=== PATIENT | female | born 1985 | race Caucasian/White ===

== ENCOUNTER 2024-08-22 20:32 | Emergency (ER) | payer BC, SELFPAY ==
[2024-08-22 20:36] VITALS: BP 163/94; PULSE 123; RESP 16; O2SAT 98
[2024-08-22 20:43] VITALS: BP 162/93; PULSE 126; RESP 22; TEMP 37.3; O2SAT 99
--- NOTE | 2024-08-22 21:08 | W.ED.GENAD ---
Discharge Plan Discharge Details Chief Complaint: PsychEval Clinical Impression: Arabella Primary Care Provider: Unknown,Unknown ED Provider: Adrianna Overton Home Meds and New Rx's Prescriptions: No Action quetiapine [Seroquel] .ROUTE HPI General Mode of arrival: ambulatory. Date/Time Provider Initiated Documentation: 08/22/24 20:45. Limitations to Documentation: no limitations. Information obtained by: patient. HPI Narrative: 39yo F with hx bipolar, unknown what medications she typically takes, presenting via EMS for concern for maniac episode. Minimally history obtained from patient who is quiet tangential. She denies SI/HI/AH/VH or physical complaints. Father subsequently to bedside and reports that for 2-3 days she has been agitated, not sleeping, not making sense, slamming doors. Has been walking around naked including outside in the snow (of note, temp ~10 degrees F today). Has had similar episodes in the past requiring hospitalization. Related Data Home Medications ?Medication ?Instructions ?Recorded ?Confirmed quetiapine .ROUTE 08/22/24 Allergies Allergy/AdvReac Type Severity Reaction Status Date / Time lithium Allergy Unknown Unknown Verified 08/22/24 20:47 General Stated Complaint: PsychEval JESUS: 2 Review of Systems Narrative: see HPI Exam Narrative Exam Narrative: General: Alert, well appearing, well nourished, in no acute distress. Head: Normocephalic, atraumatic Neck: Trachea midline, ?Neck supple. Cardiac: ?RRR, no murmurs appreciated Resp: No respiratory distress. CTAB. Abd: ?Soft, non-distended, nontender : ?No suprapubic tenderness. Extremities: ?No deformities.? No peripheral edema. Neurologic: GCS 15. ? Moves all extremities freely against gravity Psych: Mildly agitated, verbally redirectable. Well groomed.? Mood great!, affect congruent.? Speech slightly rapid and high pitches with normal volume and rythym. Frequently giggling. Tangential. Denies SI/HI/AH/VH. ? Does not appear to be responding to internal stimuli. Course Vital Signs Vital signs: Vital Signs Pulse 123 H 08/22/24 20:36 Respiratory Rate 16 08/22/24 20:36 Blood Pressure 163/94 H 08/22/24 20:36 Pulse Oximetry 98 08/22/24 20:36 Temperature 37.3 C 08/22/24 20:43 Temperature Source Oral 08/22/24 20:43 Pulse 126 H 08/22/24 20:43 Respiratory Rate 22 08/22/24 20:43 Blood Pressure 162/93 H 08/22/24 20:43 Pulse Oximetry 99 08/22/24 20:43 Oxygen Delivery Method Room Air 08/22/24 20:43 Oxygen Flow Rate 0 08/22/24 20:43 Pain Level 0 08/22/24 20:36 Medical Decision Making 39yo F with hx bipolar, unknown what medications she typically takes, presenting via EMS for concern for maniac episode. Minimally history obtained from patient who is quiet tangential. She denies SI/HI/AH/VH or physical complaints. Father subsequently to bedside and reports that for 2-3 days she has been agitated, not sleeping, not making sense, slamming doors. Has been walking around naked including outside in the snow (of note, temp ~10 degrees F today). Has had similar episodes in the past requiring hospitalization. Tachycardiac and hypertensive on arrival. HR improved to 100 without intervention. Suspect 2/t agitation. On exam she is agitated but redirectable, quite tangential. No SI/HI/AH/VH. Appears maniac, not psychotic. Medically cleared with SMART tool. Unknown home meds; father will attempt to identify and clarify. Evaluated by NK who agree patient warrants inpatient placement. Will be signed out to oncoming physician, plan as above. Patient is voluntary at this time but would meet involuntary criteria should she wish to leave. Quality:SDOH Health Related Social Needs: No Data to Display [facility] All Active Problems (Updated 08/22/24 @ 22:54 by Adrianna Overton MD) Arabella (Acute) Medical History (Updated 08/22/24 @ 22:54 by Adrianna Overton MD) Bipolar 1 disorder Surgical History (Updated 08/22/24 @ 21:27 by Bulmaro Brar RN) Neck discomfort Humeral surgical neck fracture Social History Smoking/Tobacco Use Status: Never Smoking risk assessment performed?: Yes Alcohol Intake: never
[2024-08-22 21:57] VITALS: PULSE 100; RESP 20; O2SAT 99
--- NOTE | 2024-08-22 23:20 | PDOC.MHCN ---
Date of service: 08/22/24 Time of Service: 22:46 Mental Health Emergency Note Release [facility] release signed:: No Reason for Visit In the last 2 weeks has the pt presented for ES prior to today?: Unknown Client Information Client is: New Well Housed: Yes Non Suicidal Self Injury Current: No History: No Safety Risk/Harm to Self or Others Current Ideation to Harm Self or Others: No Risk: Does risk to harm exist?: No Risk: N/A Duty to warn indicated: No Asssessment/Mental Status Appearance: Disheveled Behavior: Poor impulse control, Gait disturbances and Repetitive movements Speech: Normal Affect: Expansive Mood: Elevated, Expansive and Sad Thought process: Racing, Circumstational and Poverty of content Hallucinations: No evidence Delusions: No evidence Attention: Wandering and Inattention Perception: Derealization Orientation: Fully orientated Insight: Poor Judgement: Poor Neurovegetative Symptoms Sleep: Decrease Appetitie: No change Interests: No change Energy: No change Libido: Not applicable Substance Use: Do you use nicotine?: No Have you used substances in the last 7 days?: No Additional Issues: Assaultive/Threatening Behavior: Yes Medical Concerns: No Client engaged in active self harm w/weapon: No Threatening to run away: No Child reported abuse/neglect: No Voluntarily presenting for services: Yes Domestic violence is a concern: No Extreme Psychosis or extreme behavior is present: Yes Impression La Nena presents to this credit underwriter in paper scrubs, in her hospital room. La Nena reports she is upset that the staff at [facility] gave her mismatched socks, all socks were the same size. La Nena spoke about this for several minutes after this credit underwriter asked her why she was at the hospital. La Nena could not identify why she was at the hospital and reports that she is ?living in a twilight zone?. La Nena is easily distracted by other things on the tablet, like the password sticker, and the home button. La Nena reports she cannot sit on the bed, looks at this credit underwriter and goes ?you know why? and then sat on the bed a few minutes later. After every statement, La Nena would state, ?you know why though?. La Nena reports it is 2024 so it is okay to be manic. La Nena also reports that she had a panic attack earlier due to Platt dying. La Nena identified Platt as her cat and then stated ?You know he did not recently? When this credit underwriter asked when he La Nena stated, ?when we were kids, you know that? then paused and stated ? why are you even talking about Lc? Both this credit underwriter and her father tried to remind her she just brought up Lc but she did not seem to remember. La Nena reports that she is at a hospital that is very wordy and likes to use words. La Nena is oriented x3. La Nena denies every struggle with mental health, although dad reports she has a long history of mental health issues. This credit underwriter reported to La Nena she appeared to be in a mental health crisis and La Nena stated ?no I am all set?. La Nena reports she does not want to go to inpatient treatment, but at this time La Nena is not safe to return to the community. La Nena?s behaviors continue to be unpredictable and dangerous evident in her two mobile crisis responses today. La Nena is not able to engage in a normal conversation or be present in reality of 2024. La Nena presents as a client in significant need for mental health treatment. Aurea received a call from La Nena?s brother stating that they could not get in contact with Faizan, the father, after they got report that La Nena had taken knives out and had began throwing objects. Aurea and police responded to the home in person to find La Nena, extremely escalated with knives out. La Nena was in the middle of a mental health crisis and was not able to be de-escalated so she was transported via ambulance to the hospital for her safety as well as others. La Nena?s unpredictable behaviors, poor impulse control, and inability to be present in reality leaves her at risk to herself and the community. Plan/Disposition Recommended Disposition: Hospitalization (client is on EE, once all paperwork is compiled referrals will be sent) No. Plan: Client is on EE, QMHP portion completed and sent to [facility] awaiting physician piece and request for 2nd cert as well as medcial to complete referrals Person reported agreement to plan: Yes Reports/communication Outcome discussed with: ED/Personnel
[2024-08-23] MEDS: OLANZapine 10 MG VIAL 5 MG IM (03:00)
--- NOTE | 2024-08-23 03:02 | NUR.NOTE ---
[facility] called and refused pt Nursing Note:
[2024-08-23] MEDS: Water,Injection,Sterile 10 ML VIAL (04:10)
[2024-08-23 07:22] VITALS: BP 128/86; PULSE 120; RESP 20; TEMP 37.2; O2SAT 100
--- NOTE | 2024-08-23 08:07 | W.EDPROG ---
Date of service: 08/23/24 Time of Service: 08:08 Medical Decision Making Care assumed from outgoing provider. Patient is currently pending voluntary inpatient psychiatric placement. She is a 39-year-old female with history of bipolar disorder questionable medication compliance there is currently in the area visiting family. She has been displaying erratic and manic behavior, delusions and disorganized thinking at home and her family brought her here for evaluation. While in the emergency department, the patient has had significant behavioral issues. This morning on my arrival the patient left her room and went into another patient's room which created significant discord. At this time a seclusion order has been placed for the safety of the patient and the other patients in the area. Patient voluntarily took IM medication, but will not take oral medication and has not slept since being in the department. Will continue close monitoring. 1500 patients behavior has been steady throughout the day Quality:SDOH Health Related Social Needs: No Data to Display Discharge Plan Discharge Details Chief Complaint: PsychEval Clinical Impression: Arabella Primary Care Provider: Unknown,Unknown ED Provider: Julio Castañeda Home Meds and New Rx's Prescriptions: No Action quetiapine [Seroquel] .ROUTE Restraint Face to Face Time of Face to Face Face to Face: Time of Face to Face: 07:45 Patient's Immediate Situation Requiring Restraints/Seclusion: Harm to Staff & Others (Coming out of her room and going into other patient's rooms) Patient Response to Restraints: Tolerating with minimum Problems Patient's Medical & Behavioral Condition: Patient is manic, she has been placed in seclusion in her room for the safety of the other patients in the area
--- NOTE | 2024-08-23 12:56 | PDOC.MHPN2 ---
Date of service: 08/23/24 Time of Service: 12:59 Mental Health Emergency Note Release [facility] release signed:: Yes Reason for Visit The client is new to [facility]. History of hospitalizations are unknown at this time. The client is from [place] however, was in [place] visiting with her father and is experiencing Manic behaviors as she suffers from bi-polar episodes. She presented as very energetic, pacing, rearranging things over and over, and is having trouble speaking due to her cognition working so fast and unable at times to formulate words. This assessment is completed face to face at bedside. In the last 2 weeks has the pt presented for ES prior to today?: Unknown Impression The client is a 39 year old, single, female who resides in [place] and is in [place] visiting her father. It is also not known if she is employed or what her living arrangements are. The client is unable to engage in screening tools due to that manic and psychotic episode she appears to be in. Her thought process is tangential and she repeats questions. Examples of this are she stated she is in [place] visiting her father but that's impossible because he 4 seconds ago. Do you know Dr. Beyer? He lives in a blue box but he can't drive it. When asked about eating she said she was not ungry but I have 4 hearts and I'm from [facility]. When asked about SI and HI she responded with No! Do I look like I own a kingdom? The client then became emotional while asking why people during COVID? When asked who she responded that her sister did. She then went on to say she was hot and asked if this clinician was hot and then asked you can't smell that? It's methane gas. The client is observed on camera prior to the assessment pacing back and forth in her room from the wall to the door. She is seen turning the light on, walking to the door, walking back to the wall and turning the light off again. The nurse reported she has done this for about 30 mins non-stop. The client's speech is rapid and she sruggles to hold any reality based conversations. Plan/Disposition Recommended Disposition: Hospitalization facilities contacted. Plan: The client will remain at [facility] pending acceptance. Care Management is working on her medical insurance. The client will be assessed daily until placed. Person reported agreement to plan: Yes Reports/communication Outcome discussed with: ED/Personnel
--- NOTE | 2024-08-23 15:41 | CMPROGNOTE_ITS ---
Date of service: 08/23/24 Time of Service: 15:42 Care Management Progress Note Progress Note Text Progress Note Text: La Nena was admitted on 08/23/24 seeking voluntary psychiatric stabilization. She has a history of bipolar disorder and has been taking medication (Seroquel and Buproprion) for years, according to her father. She is from [place] and came to visit her father in [place]. La Nena was not sure if she had insurance. Her Dad informed CM that he believes she has [place] Medicaid and was able to locate her card and provided CM with the number. CM contacted [employer] to see if there was any reciprocity between the 2 states but apparently there is not. Since La Nena plans to return to [place] where she lives with her mother, she would not be eligible for [place] medicaid. According to La Nena's father, she has 2 older sisters who live in [place] and a brother Eduar in [place]. She and Eduar are reportedly very close. 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 Social Determinants of Health Screening Will the Patient Participate in the Screening?: Unable to obtain
--- NOTE | 2024-08-23 16:01 | CMSP_ITS ---
Date of service: 08/23/24 Time of Service: 16:01 Care Management Safety Plan Status Status: Voluntary Reason for Wait Reason for Wait: Inpatient Admission Safety Plan Safety Plan: VOLUNTARY FOR INPATIENT PSYCHIATRIC STABILIZATION.? Patient is appropriate in all interactions since arriving at [facility]; Pt has demonstrated appropriate coping and communication skills, has articulated her needs and concerns and is fully engaged during staff interactions. Safety plan has been established with patient, and care team, to adhere to patient goals, identify restrictions based on behavioral status, address nutrition, and determine allowed personal belongings, tools for hygiene and personal care. Determine level of activity including ambulation, level of supervision, visitors, and determine privileges based on behaviors and level of engagement by pt. VOLUNTARY SAFETY PLAN: 1. Will remain on suicide precautions, in paper clothes 2. Will remain in Zone B under direct supervision of one-on-one staff at all times provided by [employer]; JOSIAH, CATHEAD OPERATOR photographic enlarger operator. 3. May have paper cups, plates, finger foods as well as a cardboard spoon with which to eat meals. 4. Follow [facility] Management of the Admitted Behavioral Health Patient policy. 5. Shower available in Zone B without restriction. 6. Personal belongings-soft items permitted at RN discretion. 7. Visitors-none at this time. 8. Activities: soft cart items approved per RN discretion. 9.? Bathroom available in Zone B without restriction. 10. Phone: limited to [facility] cordless phone at RN discretion. Due to VOLUNTARY status, if patient wishes to leave [facility], staff will contact [facility] Crisis Screener ([phone]) and Correspondence Specialist ([phone]) as soon as possible. In the event of elopement, notify [facility] Police ([phone]). Patient is currently voluntarily at [facility] and seeking inpatient admission when a bed becomes available. [facility] Frontline Behavioral Health Specialist will continue seeking place ent. Please contact the Correspondence Specialist ([phone]) and [facility] Behavioral Health Specialist ([phone]) for any needed changes in the Safety Plan. Safety plan has been provided to interdepartmental care team.
--- NOTE | 2024-08-23 16:01 | PDOC.CMSAFE ---
Date of service: 08/23/24 Time of Service: 16:01 Care Management Safety Plan Status Status: Voluntary Reason for Wait Reason for Wait: Inpatient Admission Safety Plan Safety Plan: VOLUNTARY FOR INPATIENT PSYCHIATRIC STABILIZATION.? Patient is appropriate in all interactions since arriving at [facility]; Pt has demonstrated appropriate coping and communication skills, has articulated her needs and concerns and is fully engaged during staff interactions. Safety plan has been established with patient, and care team, to adhere to patient goals, identify restrictions based on behavioral status, address nutrition, and determine allowed personal belongings, tools for hygiene and personal care. Determine level of activity including ambulation, level of supervision, visitors, and determine privileges based on behaviors and level of engagement by pt. VOLUNTARY SAFETY PLAN: 1. Will remain on suicide precautions, in paper clothes 2. Will remain in Zone B under direct supervision of one-on-one staff at all times provided by [employer]; JOSIAH, WEB PRODUCTION DESIGNER network operations analyst. 3. May have paper cups, plates, finger foods as well as a cardboard spoon with which to eat meals. 4. Follow [facility] Management of the Admitted Behavioral Health Patient policy. 5. Shower available in Zone B without restriction. 6. Personal belongings-soft items permitted at RN discretion. 7. Visitors-none at this time. 8. Activities: soft cart items approved per RN discretion. 9.? Bathroom available in Zone B without restriction. 10. Phone: limited to [facility] cordless phone at RN discretion. Due to VOLUNTARY status, if patient wishes to leave [facility], staff will contact [facility] Crisis Screener ([phone]) and Senior Analyst Developer ([phone]) as soon as possible. In the event of elopement, notify [facility] Police ([phone]). Patient is currently voluntarily at [facility] and seeking inpatient admission when a bed becomes available. [facility] Frontline Low Pressure Firer will continue seeking placement. Please contact the Senior Analyst Developer ([phone]) and [facility] Low Pressure Firer ([phone]) for any needed changes in the Safety Plan. Safety plan has been provided to interdepartmental care team.
--- NOTE | 2024-08-23 17:06 | ED.PROG_ITS ---
Date of service: 08/23/24 Time of Service: 16:00 Medical Decision Making In brief, this is a 39-year-old female patient with a history of bipolar brought in for evaluation of manic and delusional behaviors. At the time that I took over her care she has been medically cleared, though a urine drug screen was req uested and obtained, which was negative. During my shift the patient was becoming increasingly agitated and frantic, communicating both verbally and with sign language. She continues to get up and pace, exiting her room, speaking loudly. She asks for several people by name, appears quite distressed that they have , states to this provider everybody is going to tomorrow. The patient is also expressing the belief that she possesses a cloaca, and needs to have an egg like a platypus. She requests of several providers in the room to assist her in this. The patient is intermittently tearful and agitated, turns the lights off so she can see colors. The patient's behavior became increasingly upset and agitated, and was causing significant distress and other residents, and preventing providers from completing cares such as urinalysis collection, and redirecting the patient back into her room. The patient is unable to be verbally redirected or de-escalated, and is excessively disorganized, nonlinear thought process. The patient was given intramuscular droperidol and Versed for nonviolent chemical restraint given her agitation and inability to redirect. I am concerned that the patient's ongoing agitation, wandering, and delusions do put her at risk of injury or harm. After medication administration the patient was significantly calm, able to lay down on the bed and was sleeping on my reevaluation. Non violent restraints were completed at that time. Signed out to the oncoming provider prior to final disposition. Remained hemodynamically appropriate while under my care. Denise Pina MD Medical Records Medical records reviewed: Yes I reviewed the patient's medical records. Lab Data Lab results reviewed: Yes I reviewed the patient's lab results. Quality:SDOH Health Related Social Needs: No Data to Display Discharge Plan Discharge Details Chief Complaint: PsychEval Clinical Impression: Arabella Primary Care Provider: Unknown,Unknown ED Provider: Denise Pina Home Meds and New Rx's Prescriptions: No Action quetiapine [Seroquel] .ROUTE Restraint Face to Face Time of Face to Face Face to Face: Time of Face to Face: 17:58 Patient's Immediate Situation Requiring Restraints/Seclusion: Harm to Staff & Others Patient Response to Restraints: Tolerating without Problems Need for Continuation of Restraints Has Been Assessed: Restraints Terminated
[2024-08-23] MEDS: Droperidol 5 MG/2 ML VIAL (17:58)
[2024-08-23] MEDS: Midazolam 5 MG/5 ML VIAL (17:59)
[2024-08-23 18:43] LABS: *AMPHETAMINES SCREEN URINE Negative (Negative); *BARBITURATES SCREEN URINE Negative (Negative); *BENZODIAZEPINES SCREEN URINE Negative (Negative); Cannabinoids THC Negative (Negative); Cocaine Screen,Urine Negative (Negative); METHADONE URINE SCREEN Negative (Negative); OPIATES URINE SCREEN Negative (Negative)
[2024-08-23 18:53] LABS: Tricyclic Antidepressants Negative (Negative)
--- NOTE | 2024-08-23 23:05 | NUR.NOTE ---
father called, asked to be added to hipaa when pt is awake. also wants to come see her. care plan is no visitors advised that we will ask that to be changed and asked that he call before coming 08/24 to check that visitors are allowed
[2024-08-24] MEDS: QUEtiapine 100 MG TAB 200 MG PO (01:02)
[2024-08-24] MEDS: buPROPion-XL 150 MG TABCR PO ×2 (01:02→20:37)
[2024-08-24] MEDS: Mirtazapine 15 MG TAB 30 MG PO ×2 (01:02→23:27)
--- NOTE | 2024-08-24 06:15 | W.EDPROG ---
Date of service: 08/23/24 Time of Service: 23:30 Medical Decision Making This patient was signed out to me. Please see previous notes for H&P and initial eval. In brief, 39yo F with bipolar, presenting with arabella. Medically cleared, pending voluntary inpatient placement. Meets involuntary criteria should she wish to leave. Med rec completed, home meds ordered. No acute events overnight. Did not wake for assessment. Will be signed out to oncoming physician, plan remains as above. Quality:SDMS Health Related Social Needs: No Data to Display Discharge Plan Discharge Details Chief Complaint: PsychEval Clinical Impression: Arabella Primary Care Provider: Unknown,Unknown ED Provider: Adrianna Overton Home Meds and New Rx's Prescriptions: No Action quetiapine [Seroquel] 200 mg PO HS mirtazapine 30 mg tablet 30 mg PO QHS bupropion HCl [Wellbutrin XL] 150 mg tablet extended release 24 hr 150 mg PO QHS
[2024-08-24 07:30] VITALS: BP 116/79; PULSE 126; RESP 19; TEMP 36.4; O2SAT 96
--- NOTE | 2024-08-24 13:18 | MHPN_ITS ---
Date of service: 08/24/24 Time of Service: 13:20 Mental Health Emergency Note Release [facility] release signed:: Yes Reason for Visit The client is new to [facility]. History of hospitalizations are unknown at this time. The client is from [place] however, was in [place] visiting with her father and is experiencing Manic behaviors as she suffers from bi-polar episodes. She presented as very energetic, pacing, rearranging things over and over, and is having trouble speaking due to her cognition working so fast and unable at times to formulate words. This assessment is completed face to face at bedside with her father present. In the last 2 weeks has the pt presented for ES prior to today?: Unknown Impression The client is a 39 year old, single, female who resides in [place] and is in [place] visiting her father. It is also not known if she is employed or what her living arrangements are. Although she is presenting less agitated today she is still presenting with disorganized thoughts and not oriented to events, reasons, current affairs i.e. who the president is, or year. She was able to identify the date by looking at the clock in the cho. She reported that 1.6.25 was the trigger for her because it reminded her of things that happened that really did not happen and that it was 9.11 if you do the math [id number]... She stated she was born in 1998 and then when questioned she said no I said I was born in 1984. She is able to recount what she believes she takes for medications however, this cannot be verified. She often speaks of topics and then askes does that make sense? She is reassured by both this clinician and her father in a gentle manner that it does not make sense. She was eager to leave to go back to [place] to meet up with her team however, her father informs this clinician she does not have a team that she see's a PCP, Dr. Milan and has no therapist etc. She is observed excusing herself to get a tissue or a drink but then is gone for un unreasonable amount of time. She is difficult to keep focused and her father does not believe he can keep her safe. This clinician worries that if she were to get on a plane to go back to [place] she would get lost or hurt because f her current mental status. When this clinician and the father inform her that we believe she needs to stay and go inpatient she said Yes that is what I am saying. Plan/Disposition Recommended Disposition: Hospitalization facilities contacted. Plan: The client will stay voluntarily for treatment and be assessed daily until placed or she clears mentally. Lesser restrictive cannot be considered at this time due to her mental status. Person reported agreement to plan: Yes Reports/communication Outcome discussed with: ED/Personnel
--- NOTE | 2024-08-24 14:00 | RT.EKG_ITS ---
APPROVED REPORT Exam: Resting ECG Reason for Exam: persistent tachycardia Patient Location: E HR:109 bpm ECG Measurements Heart Rate 109 AXIS HI 134 P 32 QRSd 91 QRS 16 QT 376 T 12 QTc 506 Conclusion Sinus tachycardia...rate> 99 Low voltage, precordial leads...precordial leads <1.0mV
--- NOTE | 2024-08-24 14:14 | ED.PROG_ITS ---
Date of service: 08/24/24 Time of Service: 14:14 Medical Decision Making 1420 -- Care was signed out by Dr. Overton at 730a, please see her documentation regarding prior ED course. Plan at signout was to await psychiatric placement. Of note, patient is persistently tachycardic here while being observed. UDS n egative. Tachycardia may be related to arabella but we will check screening labs to assess for hyperthyroidism, anemia, other acute abnormality. Patient complaining of left musculoskeletal shoulder pain and requesting ibuprofen. Ibuprofen 40 mg was ordered. 1426??screening EKG was reviewed and interpreted by me: Sinus tachycardia 109 bpm, otherwise nondiagnostic. 1528 --Labs reviewed and mild hypokalemia noted. I will give K-Dur 20 mill equivalents to correct. Patient medically screened, no acute lifethreatening medical condition identified. Lab Data Lab results reviewed: Yes I reviewed the patient's lab results. Labs: Laboratory Tests Range/Units 08/23/24 08/24/24 18:15 14:30 WBC (4.4-10.8) 10^3/uL 7.18 RBC (3.93-5.22) 10^6/uL 4.02 Hgb (11.2-15.7) g/dL 12.9 Hct (36.0-46.0) % 36.8 MCV (80-95) fL 92 MCH (27.0-33.0) pg 32.1 MCHC (32.0-36.0) % 35.1 RDW (11.7-14.6) % 11.9 Plt Count (130-400) 10^3/uL 353 MPV (8.0-11.0) fL 9.0 Immature Gran % % 0.1 Neutrophils % % 55.4 Lymphocytes % % 32.3 Monocytes % % 10.7 Eosinophils % % 1.1 Basophils % % 0.4 Nucleated RBC % (0.0-0.3) % 0.0 Absolute Neutrophils (1.2-6.7) 10^3/uL 3.97 Absolute Lymphocytes (1.2-3.4) 10^3/uL 2.32 Absolute Monocytes (0.1-0.8) 10^3/uL 0.77 Absolute Eosinophils (0.0-0.7) 10^3/uL 0.08 Absolute Basophils (0.0-0.2) 10^3/uL 0.03 Sodium (136-145) mmol/L 139 Potassium (3.5-5.1) mmol/L 3.2 L Chloride (98-107) mmol/L 101 Carbon Dioxide (21.0-32.0) mmol/L 28.5 Anion Gap (3-11) mmol/L 9.5 BUN (7-18) mg/dL 14 Creatinine (0.55-1.02) mg/dL 0.9 Est GFR (CKD-EPI 2020) (mL/min/1.73m2) 84.44 Glucose (74-106) mg/dL 134 H Calcium (8.5-10.1) mg/dL 8.4 L Magnesium (1.8-2.4) mg/dL 2.0 Total Bilirubin (0.2-1.0) mg/dL 0.82 AST (15-37) U/L 31 ALT (14-59) U/L 50 Alkaline Phosphatase (46-116) U/L 101 Total Protein (6.4-8.2) g/dL 7.8 Albumin (3.4-5.0) g/dL 3.9 TSH (0.36-3.74) uIU/mL 0.51 Urine Opiates Screen (Negative) Negative Urine Methadone Screen (Negative) Negative Ur Barbiturates Screen (Negative) Negative Ur Tricyclics Screen (Negative) Negative Ur Amphetamines Screen (Negative) Negative U Benzodiazepines Scrn (Negative) Negative Urine Cocaine Screen (Negative) Negative Ur THC Screen (Negative) Negative Quality:SDOH Health Related Social Needs: No Data to Display Discharge Plan Discharge Details Chief Complaint: PsychEval Clinical Impression: Arabella Primary Care Provider: Unknown,Unknown ED Provider: Parveen Patel [place] Meds and New Rx's Prescriptions: No Action quetiapine [Seroquel] 200 mg PO HS mirtazapine 30 mg tablet 30 mg PO QHS bupropion HCl [Wellbutrin XL] 150 mg tablet extended release 24 hr 150 mg PO QHS
[2024-08-24] MEDS: Ibuprofen 400 MG TAB PO (14:31)
[2024-08-24 14:51] LABS: Abs Immature Grans 0.01 10^3/uL (0.0-0.06); Absolute Basophil Count 0.03 10^3/uL (0.0-0.2); Absolute Eosinophil Count 0.08 10^3/uL (0.0-0.7); Absolute Lymphocyte Count 2.32 10^3/uL (1.2-3.4); Absolute Monocyte Count 0.77 10^3/uL (0.1-0.8); Absolute Neutrophil Count 3.97 10^3/uL (1.2-6.7); Basophils % 0.4 %; Eosinophils % 1.1 %; HCT 36.8 % (36.0-46.0); HGB 12.9 g/dL (11.2-15.7); Immature Grans % 0.1 %; Lymphocytes % 32.3 %; MCH 32.1 pg (27.0-33.0); MCHC 35.1 % (32.0-36.0); MCV 92 fL (80-95); Monocytes % 10.7 %; Neutrophils % 55.4 %; Platelet Count 353 10^3/uL (130-400); RBC 4.02 10^6/uL (3.93-5.22); RDW 11.9 % (11.7-14.6); RDW-SD 39.9 fL; WBC 7.18 10^3/uL (4.4-10.8)
--- NOTE | 2024-08-24 15:13 | PDOC.CMSAFE ---
Date of service: 08/24/24 Time of Service: 15:13 Care Management Safety Plan Status Status: Voluntary Reason for Wait Reason for Wait: Inpatient Admission Safety Plan Safety Plan: VOLUNTARY FOR INPATIENT PSYCHIATRIC STABILIZATION.? Safety plan has been established with patient, and care team, to adhere to patient goals, identify restrictions based on behavioral status, address nutrition, and determine allowed personal belongings, tools for hygiene and personal care. Determine level of activity including ambulation, level of supervision, visitors, and determine privileges based on behaviors and level of engagement by pt. VOLUNTARY SAFETY PLAN: 1. Will remain on suicide precautions, in paper clothes 2. Will remain in Zone B under direct supervision of one-on-one staff at all times provided by [employer]; JOSIAH, CTO game protector. 3. May have paper cups, plates, finger foods as well as a cardboard spoon with which to eat meals. 4. Follow [facility] Management of the Admitted Behavioral Health Patient policy. 5. Shower available in Zone B without restriction. 6. Personal belongings-soft items permitted at RN discretion. 7. Visitors- father is supportive and may visit. 8. Activities: soft cart items approved per RN discretion. 9.? Bathroom available in Zone B without restriction. 10. Phone: limited to [facility] cordless phone at RN discretion. No personal cell phone. Due to VOLUNTARY status, if patient wishes to leave [facility], staff will contact [facility] Crisis Screener ([phone]) and Drying And Winding Supervisor ([phone]) as soon as possible. In the event of elopement, notify [facility] Police ([phone]). Patient is currently voluntarily at [facility] and seeking inpatient admission when a bed becomes available. [facility] Frontline Light Rail Vehicle Operator will continue seeking placement. Please contact the Drying And Winding Supervisor ([phone]) and [facility] Light Rail Vehicle Operator ([phone]) for any needed changes in the Safety Plan. Safety plan has been provided to interdepartmental care team.
--- NOTE | 2024-08-24 15:15 | PDOC.CMPRO ---
Date of service: 08/24/24 Time of Service: 15:15 Care Management Progress Note Progress Note Text Progress Note Text: CM met with staff to huddle about La Nena's plan of care. Per RN, La Nena is doing much better today; her speech is more organized and she appears more stable than yesterday. Per report, La Nena is visiting [place], where her father lives, but lives in [place], and plans to return to [place], where her mother lives. Due to her out of state residency, she does not qualify for [facility]. RN requested a re assessment by [facility], as she has made improvements today, and may be stable enough to safety plan, in order to return to [place]. Per [facility], although La Nena has improved, she is not stable enough to be discharged with a safety plan, and her father is not agreeable to her returning to his care in the community. [facility] clincian discussed this with [facility] care management, who has agreed to support a level one placement for La Nena, due to insurance barriers; there are no anticipated level one beds currently, possibly not until Tuesday. La Nena will continue to be assessed daily, and if she improves enough to create a safety plan, she will be discharged into the care of her father, who will support her traveling back to [place]. La Nena is voluntary, seeking inpatient psychiatric care. Safety plan in place; CM will continue to follow. Social Determinants of Health Screening Will the Patient Participate in the Screening?: Unable to obtain
[2024-08-24 15:24] LABS: ALT 50 U/L (14-59); AST 31 U/L (15-37); Albumin 3.9 g/dL (3.4-5.0); Alkaline Phosphatase 101 U/L (46-116); Anion Gap 9.5 mmol/L (3-11); BUN 14 mg/dL (7-18); Bilirubin, Total 0.82 mg/dL (0.2-1.0); CO2 28.5 mmol/L (21.0-32.0); CREATININE 0.9 mg/dL (0.55-1.02); Calcium 8.4 mg/dL (8.5-10.1); Chloride 101 mmol/L (98-107); Estimated GFR 84.44 (mL/min/1.73m2); Glucose 134 mg/dL (74-106); Potassium 3.2 mmol/L (3.5-5.1); Sodium 139 mmol/L (136-145); TSH (W/Ref FT4) 0.51 uIU/mL (0.36-3.74); Total Protein 7.8 g/dL (6.4-8.2)
[2024-08-24] MEDS: Potassium Chloride 20 MEQ TABCR PO (15:45)
[2024-08-24] MEDS: Acetaminophen 325 MG TAB 650 MG PO ×2 (16:33→19:30)
--- NOTE | 2024-08-24 17:28 | W.EDPROG ---
Date of service: 08/24/24 Time of Service: 19:25 Medical Decision Making Care assumed from outgoing provider. Patient is a 39-year-old female currently pending voluntary inpatient psychiatric placement for severe arabella decompensated bipolar disorder. Patient here as improved but she is still not sleeping. She is still displaying paranoia and perseveration. She has persistent complaints about her shoulder and blood work obtained today was unremarkable. She was offered Valium but refused because she does not want anything that might make her sleepy. Will continue Motrin and Tylenol as needed for her shoulder pain. 2220 patient stating that she is wanting to leave and demanding all of her belongings. She does not have capacity to make medical decisions at this time and is at high risk to herself and others if she leaves, therefor an EE will be filed. [facility] notifed. Their paperwork has already been submitted. I have filed mine and requested second cert. Quality:SDOH Health Related Social Needs: No Data to Display Discharge Plan Discharge Details Chief Complaint: PsychEval Clinical Impression: Arabella Primary Care Provider: Unknown,Unknown ED Provider: Julio Castañeda Home Meds and New Rx's Prescriptions: No Action quetiapine [Seroquel] 200 mg PO HS mirtazapine 30 mg tablet 30 mg PO QHS bupropion HCl [Wellbutrin XL] 150 mg tablet extended release 24 hr 150 mg PO QHS
[2024-08-24] MEDS: Ketorolac 10 MG TAB PO ×2 (18:30→23:27)
[2024-08-24 19:25] VITALS: BP 131/83; PULSE 109; RESP 18; TEMP 37; O2SAT 96
[2024-08-24] MEDS: Ibuprofen 600 MG TAB PO (21:40)
[2024-08-24] MEDS: Famotidine 20 MG TAB PO ×2 (21:40→23:27)
[2024-08-24] MEDS: Calcium Carbonate *TUMS* 500 MG CHEW PO (23:16)
--- NOTE | 2024-08-24 23:23 | PDOC.MHPN2 ---
Date of service: 08/24/24 Time of Service: 22:32 Mental Health Emergency Note Release [facility] release signed:: No Reason for Visit In the last 2 weeks has the pt presented for ES prior to today?: Unknown Plan/Disposition Recommended Disposition: Hospitalization facilities contacted. Plan: Client is a 39-year-old female presenting at [facility] Zone B for a check-in after requesting to leave. The client is oriented to person and place but not to time. She exhibits tangential and disorganized thought patterns, with brief periods of linear thinking when discussing frustrations about visiting her father and not being able to spend time with him due to her hospital stay. The client expressed frustration and a desire to speak with her established provider, noting an interest in increasing her treatment in [place]. The client demonstrates limited insight into the events that led to her arrival at the ED. She stated, I'm not manic, despite presenting with pressured speech and disorganized thoughts indicative of a manic episode. This resume writer validated the client's feelings and provided redirection. The client was receptive to remaining at [facility] voluntarily while awaiting placement. Dr. Artis reported that Exhibit B and a second certification request have been completed in case the client changes her mind regarding voluntary status. At this time, the client remains voluntary. Reports/communication Outcome discussed with: ED/Personnel (Dr. Atris)
[2024-08-24] MEDS: Cyclobenzaprine 10 MG TAB PO (23:27)
[2024-08-24] MEDS: QUEtiapine 50 MG TAB 200 MG PO (23:27)
[2024-08-25] MEDS: Sucralfate 1 GM TAB 2 GM PO (02:30)
[2024-08-25] MEDS: Acetaminophen 500 MG TAB 1000 MG PO (02:30)
[2024-08-25] MEDS: diazePAM 5 MG TAB PO (02:31)
--- NOTE | 2024-08-25 07:18 | ED.PROG_ITS ---
Date of service: 08/25/24 Time of Service: 07:18 Medical Decision Making Patient was signed out to me by my colleague. Please refer to their [facility] physical exam assessment and plan. Patient is here voluntarily, however EE paperwork has been signed in case she does try to leave. She did request multiple medications for her reflux which was given. She did have some chronic back pain spasm, and she was given Toradol and Tylenol. She eventually took her other scheduled medications. Pending placement at this time. Quality:[facility] Health Related Social Needs: No Data to Display Discharge Plan Discharge Details Chief Complaint: PsychEval Clinical Impression: Arabella Primary Care Provider: Unknown,Unknown ED Provider: Trip Artis Home Meds and New Rx's Prescriptions: No Action quetiapine [Seroquel] 200 mg PO HS mirtazapine 30 mg tablet 30 mg PO QHS bupropion HCl [Wellbutrin XL] 150 mg tablet extended release 24 hr 150 mg PO QHS
[2024-08-25] MEDS: Ibuprofen 600 MG TAB PO (07:23)
--- NOTE | 2024-08-25 08:16 | W.EDPROG ---
Date of service: 08/25/24 Time of Service: 08:17 Medical Decision Making Patient currently voluntary for decompensated bipolar disorder, currently without new acute complaints, will continue to monitor until safe disposition found. Quality:SDOH Health Related Social Needs: No Data to Display Discharge Plan Discharge Details Chief Complaint: PsychEval Clinical Impression: Arabella Primary Care Provider: Unknown,Unknown ED Provider: Apolinar Butt Home Meds and New Rx's Prescriptions: No Action quetiapine [Seroquel] 200 mg PO HS mirtazapine 30 mg tablet 30 mg PO QHS bupropion HCl [Wellbutrin XL] 150 mg tablet extended release 24 hr 150 mg PO QHS
[2024-08-25 09:36] VITALS: BP 133/85; PULSE 113; RESP 18; TEMP 37; O2SAT 96
[2024-08-25] MEDS: Ketorolac 10 MG TAB PO (09:36)
--- NOTE | 2024-08-25 11:11 | CMSP_ITS ---
Date of service: 08/25/24 Time of Service: 11:11 Care Management Safety Plan Status Status: Voluntary Reason for Wait Reason for Wait: Inpatient Admission (Waiting to be accepted for inpatient psych treatment) Safety Plan Safety Plan: VOLUNTARY FOR INPATIENT PSYCHIATRIC STABILIZATION.? Safety plan has been established with patient, and care team, to adhere to pa tient goals, identify restrictions based on behavioral status, address nutrition, and determine allowed personal belongings, tools for hygiene and personal care. Determine level of activity including ambulation, level of supervision, visitors, and determine privileges based on behaviors and level of engagement by pt. VOLUNTARY SAFETY PLAN: 1. Will remain on suicide precautions, in paper clothes; with the exception of her under shirt which is needed for breast support. 2. Will remain in Zone B under direct supervision of one-on-one staff at all times provided by [employer]; JOSIAH, KENNEL [employer]NAGER [employer] social work case manager. 3. May have paper cups, plates, finger foods as well as a cardboard spoon with which to eat meals. 4. Follow [facility] Management of the Admitted Behavioral Health Patient policy. 5. Shower available in Zone B without restriction. 6. Personal belongings-soft items permitted at RN discretion. 7. Visitors- father is supportive and may visit. 8. Activities: soft cart items approved per RN discretion. 9.? Bathroom available in Zone B without restriction. 10. Phone: limited to [facility] cordless phone at RN discretion. No personal cell phone. Due to VOLUNTARY status, if patient wishes to leave [facility], staff will contact [facility] Crisis Screener ([phone]) and Merchandise Flow Associate ([phone]) as soon as possible. In the event of elopement, notify [facility] Police ([phone]). Patient is currently voluntarily at [facility] and seeking inpatient admission when a bed becomes available. [facility] Frontline [employer] Android Developer will continue seeking placement. Please contact the Merchandise Flow Associate ([phone]) and [facility] J2Ee Android Developer ([phone]) for any needed changes in the Safety Plan. Safety plan has been provided to interdepartmental care team.
--- NOTE | 2024-08-25 12:34 | NUR.NOTE ---
Nursing Note: Discussed care in [place] with patient's sister: Pt is treated at [facility] in [place], [place] by psychiatrist Sundar Daniels [phone] Pt's personal physician is Dr. Milan. She has been pt's personal physician since she was 8 years old.
--- NOTE | 2024-08-25 14:04 | W.EDPROG ---
Date of service: 08/25/24 Time of Service: 14:04 Medical Decision Making Patient was evaluated by [place] from [facility] and patient is acting cooperative today and no longer wishes to stay. She adamantly denies any HI or SI and has not required any chemical restraints. She has insight into her bipolar and is going to continue her psych meds as prescribed. After discussion we do not feel we had enough to hold her against her will given her more cooperative state and lack of HI or SI. Her father is going to take her back home to his house in [place] and then she will schedule a train ride back to [place] where she lives and has her healthcare providers. Quality:SDOH Health Related Social Needs: No Data to Display Discharge Plan Disposition Patient Disposition: Home Condition: Stable Discharge Details Clinical Impression: Arabella Primary Care Provider: Unknown,Unknown ED Provider: Apolinar Butt Home Meds and New Rx's Prescriptions: Continued quetiapine [Seroquel] 200 mg PO HS mirtazapine 30 mg tablet 30 mg PO QHS bupropion HCl [Wellbutrin XL] 150 mg tablet extended release 24 hr 150 mg PO QHS Discharge Instructions Additional Instructions: Please take your medications as prescribed and follow-up with your healthcare providers where you live If you feel more ill or have new symptoms such as thoughts of self-harm or harming others return to the emergency department for reevaluation
--- NOTE | 2024-08-25 14:49 | NUR.NOTE ---
Nursing Note: Pt's sister, Nan, called from [place], states, My dad just said you're discharging her to my dad's care? This speech writer confirmed the physician and JAREDS decision to discharge pt. Nan states, He can't keep her safe. If you discharge her I am going to pursue negligence. This speech writer acknowledged the sister's concerns and advised her that [place] will be contacted as well as Dr. Wilson. [place] and Dr. Wilson notified of sister's concerns and telephone number provided so that they may call her and discuss the discharge.
--- NOTE | 2024-08-25 15:24 | NUR.NOTE ---
Nursing Note: Pt requesting physician to talk to pt's motherMadelaine. Telephone number provided to Dr. Wilson.
--- NOTE | 2024-08-25 17:14 | PDOC.CMDIS ---
Date of service: 08/25/24 Time of Service: 17:14 LACE Index Scoring Tool Questions: Length of Stay (in days): 3 Was the patient admitted via the E.D.?: Yes E.D. Visits: 1 Answers: Total Score: 7 Risk of Readmission: Low Risk Care Management Discharge Plan Reason for Hospitalization: Psych Eval Discharge Plan: A safety plan has been established with [facility] clinician and La Nena is discharged in C/O her father. Discharge plan of care and community follow up is recommended. No new VNA services are ordered. Patient/Family Education Needs: Review discharge, discuss ask me three. SDOH Health Related Social Needs: No Data to Display
== END 2024-08-25 15:33 | disposition home or self-care (01) ==
PROVIDERS: Emergency Medicine; Student in an Organized Health Care Education/Training Program; Emergency Provider Emergency Medicine
DX: F31.2 Bipolar disorder, current episode manic severe with psychotic features (principal); F22 Delusional disorders; R00.0 Tachycardia, unspecified; E87.6 Hypokalemia
CPT/HCPCS: 00123; 80053; 80307; 81025; 93005; 96372; 99285; 83735; 84443; 85025; 93010; J1790; J2250; J2359

== ENCOUNTER 2024-08-26 11:24 | Emergency (ER) | payer BC, SELFPAY ==
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
[2024-08-26] MEDS: Acetaminophen 500 MG TAB 1000 MG PO (13:02)
[2024-08-26] MEDS: Ketorolac 10 MG TAB PO (13:52)
[2024-08-26] MEDS: Mirtazapine 15 MG TAB 30 MG PO (14:11)
--- NOTE | 2024-08-26 15:00 | CMSP_ITS ---
Date of service: 08/26/24 Time of Service: 15:00 Care Management Safety Plan Status Status: Involuntary (EE ) Reason for Wait Reason for Wait: Inpatient Admission Safety Plan Safety Plan: INVOLUNTARY FOR INPATIENT PSYCHIATRIC STABILIZATION.? Patient is appropriate in all interactions since arriving at [facility]; Pt has demonstrated appropriate coping and communication skills, has articulated his or her needs and concerns and is fully engaged during staff interactions. Safety plan has been established with patient, and care team, to adhere to patient goals, identify restrictions based on behavioral status, address nutrition, and determine allowed personal belongings, tools for hygiene and personal care. Determine level of activity including ambulation, level of supervision, visitors, and determine privileges based on behaviors and level of engagement by pt. SAFETY PLAN: 1. Will remain on suicide precautions, in paper clothes 2. Will remain in Zone B under direct supervision of one-on-one staff at all times provided by [employer]; JOSIAH, CHAIN SALES CONSULTANT pumping station supervisor. 3. May have paper cups, plates, finger foods as well as a cardboard spoon with which to eat meals. 4. Follow [facility] Management of the Admitted Behavioral Health Patient policy. 5. Shower available in Zone B without restriction. 6. Personal belongings-soft items permitted at RN discretion. 7. Visitors- father is supportive and may visit at RN discretion. 8. Activities: soft cart items approved per RN discretion. 9.? Bathroom available in Zone B without restriction. 10. Phone: limited to [facility] cordless phone at RN discretion. Due to INVOLUNTARY status, patient is being held at [facility] by the Department of Mental Health ([facility]) until 2nd certification by [facility] Psychiatrist can be performed (within 24 hours). Staff will provide de-escalation support (CPI) as needed. If patient wishes to leave [facility], staff will contact [facility] Crisis Screener ([phone]) and It Communications Specialist ([phone]) as soon as possible. In the event of elopement, notify [place] [employer] ([phone]). Patient is currently involuntarily at [facility]. [facility] Frontline Religious Education Coordinator will continue seeking placement. Please contact the [employer] Specialist for any needed changes to Safety Plan. Safety plan has been provided to interdepartmental care team. Patient will be transported by [employer] at time of discharge.
--- NOTE | 2024-08-26 15:00 | PDOC.CMSAFE ---
Date of service: 08/26/24 Time of Service: 15:00 Care Management Safety Plan Status Status: Involuntary (EE ) Reason for Wait Reason for Wait: Inpatient Admission Safety Plan Safety Plan: INVOLUNTARY FOR INPATIENT PSYCHIATRIC STABILIZATION.? Patient is appropriate in all interactions since arriving at [facility]; Pt has demonstrated appropriate coping and communication skills, has articulated his or her needs and concerns and is fully engaged during staff interactions. Safety plan has been established with patient, and care team, to adhere to patient goals, identify restrictions based on behavioral status, address nutrition, and determine allowed personal belongings, tools for hygiene and personal care. Determine level of activity including ambulation, level of supervision, visitors, and determine privileges based on behaviors and level of engagement by pt. SAFETY PLAN: 1. Will remain on suicide precautions, in paper clothes 2. Will remain in Zone B under direct supervision of one-on-one staff at all times provided by [employer]; JOSIAH, CHEMICAL DEPENDENCY PROFESSIONAL client service administrator. 3. May have paper cups, plates, finger foods as well as a cardboard spoon with which to eat meals. 4. Follow [facility] Management of the Admitted Behavioral Health Patient policy. 5. Shower available in Zone B without restriction. 6. Personal belongings-soft items permitted at RN discretion. 7. Visitors- father is supportive and may visit at RN discretion. 8. Activities: soft cart items approved per RN discretion. 9.? Bathroom available in Zone B without restriction. 10. Phone: limited to [facility] cordless phone at RN discretion. Due to INVOLUNTARY status, patient is being held at [facility] by the Department of Mental Health ([facility]) until 2nd certification by [facility] Psychiatrist can be performed (within 24 hours). Staff will provide de-escalation support (CPI) as needed. If patient wishes to leave [facility], staff will contact [facility] Crisis Screener ([phone]) and Senior Underwriter ([phone]) as soon as possible. In the event of elopement, notify [place] [employer] ([phone]). Patient is currently involuntarily at [facility]. [facility] Frontline Peripatologist will continue seeking placement. Please contact the Senior Underwriter for any needed changes to Safety Plan. Safety plan has been provided to interdepartmental care team. Patient will be transported by [employer] at time of discharge.
--- NOTE | 2024-08-26 17:38 | ED.PROG_ITS ---
Date of service: 08/26/24 Time of Service: 17:00 Medical Decision Making In brief, this is a 39-year-old female patient with history of bipolar disorder, recent episode of arabella, who was brought back to the emergency department for reevaluation in the setting of family conflict. At the time that I took over he r care she has been medically cleared, and is awaiting final disposition by social work. The patient was initially placed on an EE but after evaluation by the psychiatrist, he feels that she does not demonstrate a danger to herself or others, and that she does not meet criteria for inpatient level of psychiatric care. For this reason, a safety plan was conducted, we will plan for the patient to go to an air B&B followed by transport home to where she resides in [place]. She has outpatient mental health resources and feels comfortable accessing them. She demonstrates linear thought process, is no longer exhibiting pressured speech or delusional thinking, and is not suicidal or homicidal. At this time, the patient has had a full medical evaluation and is safe for discharge to home. They are hemodynamically stable, ambulatory, and tolerating PO. They are understanding of the follow-up plan and return precautions. They left our facility without incident. Denise Pina MD Medical Records Medical records reviewed: Yes I reviewed the patient's medical records. Lab Data Lab results reviewed: Yes I reviewed the patient's lab results. Quality:[facility] Health Related Social Needs: No Data to Display Discharge Plan Disposition Patient Disposition: Home Condition: Stable Discharge Details Clinical Impression: Arabella, Bipolar 1 disorder Primary Care Provider: Unknown,Unknown ED Provider: Denise Pina Home Meds and New Rx's Prescriptions: No Action quetiapine [Seroquel] 200 mg PO HS mirtazapine 30 mg tablet 30 mg PO QHS bupropion HCl [Wellbutrin XL] 150 mg tablet extended release 24 hr 150 mg PO QHS Discharge Instructions Instructions: Bipolar disorder - Discharge instructions Additional Instructions: You were seen in the emergency department today for evaluation of your mental health. In our department you do full physical examination and met with a mem leon of the psychiatry team. As discussed, we will continue to have you follow the safety plan that you made with [facility] yesterday, with a plan to go to an air B&B [facility] and then return home to [place]. If you develop any concerning symptoms such as thoughts of suicide, homicide, hallucinations or arabella you can return to the emergency department for reevaluation. Please follow-up with your primary care provider in the next few days to discuss this visit and any symptoms that change, worsen, or persist. Thank you for allowing us to be part of your care.
[2024-08-26] MEDS: Ketorolac 10 MG TAB 30 MG PO (19:48)
== END 2024-08-26 19:50 | disposition home or self-care (01) ==
PROVIDERS: Emergency Provider Emergency Medicine
DX: F29 Unspecified psychosis not due to a substance or known physiological condition (principal); F31.9 Bipolar disorder, unspecified
CPT/HCPCS: 00123; 81025; 99285; 99284

== ENCOUNTER 2024-08-26 21:27 | Emergency (ER) | payer BC, SELFPAY ==
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
[2024-08-27] MEDS: Ketorolac 10 MG TAB PO ×2 (01:21→10:50)
[2024-08-27] MEDS: buPROPion-XL 150 MG TABCR PO (01:22)
[2024-08-27] MEDS: Mirtazapine 15 MG TAB 30 MG PO (01:22)
[2024-08-27] MEDS: QUEtiapine 100 MG TAB 200 MG PO (01:23)
[2024-08-27 01:27] VITALS: BP 138/90; PULSE 100; RESP 22; TEMP 36.6; O2SAT 98
--- NOTE | 2024-08-27 06:08 | NUR.NOTE ---
08/26/2024 @1900: Pt d/c'd to AirB by [facility] via [facility] to await transport home to [place]. 08/26/2024 @2131: Pt returned to ER via AirB host [facility] who reportedly said pt did not have a reservation. She tried to take pt to [facility], but pt reportedly refused and asked to be taken back to ER. Pt brother Eduar called the hospital somewhat distressed s/p pt called him from [facility] driveway and sounded confused and unsure of what was going on. Upon arrival pt condition remains grossly unchanged. She is manic, and generally oriented but perseverating on past plans and having issues recalling specific events. Denies SI/HI. Packing and unpacking suitcase sporadically. Virginia from [facility] on the phone w/ pt. 08/26/2024 @220: Per MD Pina, Virginia from [facility] has plan in place w/ pt and her family for pt to remain here until family arrives from [place] via personal vehicle to take pt home for further eval and treatment w/ primary psychiatrist. Pt needs mets at this time and pt reoriented to the plan of care. Will remain in bed 9 at this time d/t inability to appropriately staff zone B at this time. 08/27/2024 @1883: This RN reached out [facility] environmental issues instructor to confirm that above mentioned plan w/ family is correct since pt is talking about getting a train ride home to [place] and staying at same AirBnB she thought she had a reservation at Tuesday evening. Bob Forde from [facility] spoke to this RN and confirmed the plan in place and gave this RN contact #s for mom (Madelaine) and brother (Eduar) who would be heading to [place] from [place] at some time between 8-9 in the morning on a [address]. This plan was expressed to pt, who did not seem to understand and kept referencing a train ride home. Remains in RM9 at this time.
--- NOTE | 2024-08-27 07:53 | ED.PROG_ITS ---
Date of service: 08/27/24 Time of Service: 07:53 Medical Decision Making Patient remained stable throughout the night. No interventions needed. Pending pickup by family members. Please refer to Dr. [place] documentation for plan. Quality:SDOH Health Related Social Needs: Health related social needs housing instability, house d, with risk of homelessness (Z59.811), inadequate housing (Z59.1), problems related to edith sing/economic circumstances (Z59.89) Discharge Plan Disposition Patient Disposition: Home Condition: Good Discharge Details Clinical Impression: Bipolar 1 disorder Primary Care Provider: Unknown,Unknown ED Provider: Trip Artis Home Meds and New Rx's Prescriptions: No Action mirtazapine 30 mg tablet 30 mg PO QHS bupropion HCl [Wellbutrin XL] 150 mg tablet extended release 24 hr 150 mg PO QHS quetiapine 200 mg tablet 200 mg PO HS Patient Comments: TAKE 1 TABLET BY MOUTH AT BEDTIME Discharge Instructions Additional Instructions: Please follow-up with your mental health advocates at home. Please rely on your support that works with your family as well. If you notice any worsening of your symptoms, or any new symptoms such as vomiting, diarrhea, fever, chills, shortness of breath, chest pain, numbness, weakness, or fainting , please return immediately to the emergency department for reevaluation. Please follow up with your primary care provider as soon as possible for reassessment and reevaluation. As always, it was a pleasure participating in your medical care today.
--- NOTE | 2024-08-27 08:30 | W.EDPROG ---
Date of service: 08/27/24 Time of Service: 08:30 Medical Decision Making I received signout on this 39-year-old female in the emergency department voluntarily.She has a history of bipolar disorder. She was seen by psychiatric crisis screeners and they did not feel that she required inpatient level of care. Her mom is reportedly coming up to take her home back to [place]. No active behavioral issues last shift. Will update documentation as clinically warranted and signed patient out to the oncoming evening provider. 5:09 PM No active behavioral issues on my shift. Patient signed out to Dr. Overton. Quality:SDOH Health Related Social Needs: Health related social needs housing instability, housed, with risk of homelessness (Z59.811), inadequate housing (Z59.1), problems related to housing/economic circumstances (Z59.89) Discharge Plan Disposition Patient Disposition: Home Condition: Good Discharge Details Clinical Impression: Bipolar 1 disorder Primary Care Provider: Unknown,Unknown ED Provider: Devon Robledo Pooler Meds and New Rx's Prescriptions: No Action mirtazapine 30 mg tablet 30 mg PO QHS bupropion HCl [Wellbutrin XL] 150 mg tablet extended release 24 hr 150 mg PO QHS quetiapine 200 mg tablet 200 mg PO HS Patient Comments: TAKE 1 TABLET BY MOUTH AT BEDTIME Discharge Instructions Additional Instructions: Please follow-up with your mental health advocates at home. Please rely on your support that works with your family as well. If you notice any worsening of your symptoms, or any new symptoms such as vomiting, diarrhea, fever, chills, shortness of breath, chest pain, numbness, weakness, or fainting , please return immediately to the emergency department for reevaluation. Please follow up with your primary care provider as soon as possible for reassessment and reevaluation. As always, it was a pleasure participating in your medical care today.
--- NOTE | 2024-08-27 10:05 | NUR.NOTE ---
Access chart to check documentation of use of [facility] transportation. Authorization form filled out and faxed. Ana M Romo CM aware. Nursing Note:
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
--- NOTE | 2024-08-27 20:33 | ED.PROG_ITS ---
Date of service: 08/27/24 Time of Service: 17:00 Medical Decision Making This patient was signed out to me. Please see previous notes for H&P and intial eval. In brief, 39yo F with bipolar, recently dced from the ED, presenting seeking a warm place to stay. No indication for involuntary hold, patient is awaiting arrival of her mother from [place] to take her home, discharge paperwork is written. Remains appropriate in zone B, denies SI/HI/AH/VH, does not appear to be responding to internal stimuli. Family to bedside. Discharge paperwork printed and patient left in company of family. Quality:SDOH Health Related Social Needs: Health related social needs housing instability, house d, with risk of homelessness (Z59.811), inadequate housing (Z59.1), problems related to housing/economic circumstances (Z59.89) Discharge Plan Disposition Patient Disposition: Home Condition: Good Discharge Details Clinical Impression: Bipolar 1 disorder Primary Care Provider: Unknown,Unknown ED Provider: Adrianna Overton Home Meds and New Rx's Prescriptions: Continued mirtazapine 30 mg tablet 30 mg PO QHS bupropion HCl [Wellbutrin XL] 150 mg tablet extended release 24 hr 150 mg PO QHS quetiapine 200 mg tablet 200 mg PO HS Patient Comments: TAKE 1 TABLET BY MOUTH AT BEDTIME Discharge Instructions Additional Instructions: Please follow-up with your mental health advocates at home. Please rely on your support that works with your family as well. If you notice any worsening of your symptoms, or any new symptoms such as vomiting, diarrhea, fever, chills, shortness of breath, chest pain, numbness, weakness, or fainting , please return immediately to the emergency department for reevaluation. Please follow up with your primary care provider as soon as possible for reassessment and reevaluation. As always, it was a pleasure participating in your medical care today.
== END 2024-08-27 23:53 | disposition home or self-care (01) ==
PROVIDERS: Emergency Provider Student in an Organized Health Care Education/Training Program
DX: F31.9 Bipolar disorder, unspecified (principal)
CPT/HCPCS: 00123; 99283

== ENCOUNTER 2024-08-28 01:57 | Emergency (ER) | payer OTHER, SELFPAY ==
[2024-08-28] MEDS: OLANZapine 10 MG VIAL 20 MG IM (02:41)
[2024-08-28] MEDS: Water,Injection,Sterile 10 ML VIAL (04:25)
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
--- NOTE | 2024-08-28 06:58 | NUR.NOTE ---
Madelaine (Mom) [phone] Eduar (brother) [phone] Brittany (sister) [phone]
--- NOTE | 2024-08-28 07:53 | W.EDPROG ---
Date of service: 08/28/24 Time of Service: 07:53 Medical Decision Making I received signout on this 39-year-old female with history of bipolar disorder currently on EE. Patient was discharged yesterday after initial EEG failed. She has received involuntary medications. Her medications have been ordered. Will update documentation and signed patient out to the oncoming evening provider. 5 PM No active behavioral issues last shift. Patient pending second certification. Will sign patient out to evening provider. Quality:SDAL Health Related Social Needs: Health related social needs housing instability, housed, with risk of homelessness (Z59.811), inadequate housing (Z59.1), problems related to housing/economic circumstances (Z59.89) Discharge Plan Disposition Patient Disposition: Psychiatric Hospital/Unit Specific Psychiatric Facility: [facility] Discharge Details Clinical Impression: Arabella, Psychosis Primary Care Provider: Diana,[facility] ED Provider: Julio Castañeda Home Meds and New Rx's Prescriptions: No Action mirtazapine 30 mg tablet 30 mg PO QHS bupropion HCl [Wellbutrin XL] 150 mg tablet extended release 24 hr 150 mg PO QHS quetiapine 200 mg tablet 200 mg PO HS Patient Comments: TAKE 1 TABLET BY MOUTH AT BEDTIME Discharge Data Discharge Date/Time-TO BE ENTERED AT DEPARTURE: 08/30/24 17:02
[2024-08-28 09:21] VITALS: BP 110/69; PULSE 96; RESP 16; TEMP 36.5; O2SAT 99
[2024-08-28] MEDS: Acetaminophen 500 MG TAB 1000 MG PO (14:06)
--- NOTE | 2024-08-28 15:39 | CMSP_ITS ---
Date of service: 08/28/24 Time of Service: 15:50 Care Management Safety Plan Status Status: Involuntary Reason for Wait Reason for Wait: Assessment/Screening (pending second certification) Safety Plan Safety Plan: INVOLUNTARY FOR INPATIENT PSYCHIATRIC STABILIZATION.? Patient is appropriate in all interactions since arriving at [facility]; Pt has demonstrated appropriate coping and communication skills, has articulated his or her needs and concerns and is fully engaged during staff interactions. Safety plan has been established with patient, and care team, to adhere to patient goals, identify restrictions based on behavioral status, address nutrition, and determine allowed personal belongings, tools for hygiene and personal care. Determine level of activity including ambulation, level of supervision, visitors, and determine privileges based on behaviors and level of engagement by pt. SAFETY PLAN: 1. Will remain on suicide precautions, in paper clothes 2. Will remain in Zone B under direct supervision of one-on-one staff at all times provided by [employer]; [employer]EN BRUSH MAKER, JOB COST ESTIMATOR sales force administrator. 3. May have paper cups, plates, finger foods as well as a cardboard spoon with which to eat meals. 4. Follow [facility] Management of the Admitted Behavioral Health Patient policy. 5. Shower available in Zone B without restriction. 6. Personal belongings-soft items permitted at RN discretion. 7. Visitors- mother and brother are supportive, and may visit at Pt and RN discretion. 8. Activities: soft cart items approved per RN discretion. 9.? Bathroom available in Zone B without restriction. 10. Phone: limited to [facility] cordless phone at RN discretion. Due to INVOLUNTARY status, patient is being held at [facility] by the Department of Mental Health ([facility]) until 2nd certification by [facility] Psychiatrist can be performed (within 24 hours). Staff will provide de-escalation support (CPI) as needed. If patient wishes to leave [facility], staff will contact [facility] Crisis Screener ([phone]) and Jewelry [employer]ber ([phone]) as soon as possible. In the event of elopement, notify [place] [employer] ([phone]). Patient is currently involuntarily at [facility]. [facility] Frontline [employer] will continue seeking placement. Please contact the Jewelry Jobber for any needed changes to Safety Plan. Safety plan has been provided to interdepartmental care team. Patient will be transported by [facility] at time of discharge.
--- NOTE | 2024-08-28 15:56 | PDOC.CMPRO ---
Date of service: 08/28/24 Time of Service: 16:02 Care Management Progress Note Progress Note Text Progress Note Text: CM huddled with staff today regarding La Nena's plan of care. La Nena was initially in zone B voluntarily, was discharged into the care of her mother, and then subsequently brought back to the ED, where she is now being held involuntarily, awaiting her second certification. Per report, she does not recall the events that led her to this most recent ED visit. Per [facility], her mother and brother, Eduar, are supportive, and may visit, if La Nena is agreeable. [facility] does not advise visits with her father at this time, as La Nena is upset with him due to their recent negative interaction. Per RN, La Nena has not been eating well, and is only ordering desserts all day; La Nena's family feels that this is contributing to her mental state. After discussion in the huddle, it was decided that La Nena should be presented with a balanced meal at each meal time, and have the option to choose one dessert per meal. She may have a healthy snack between meals, limiting processed sugar/foods. La Nena will likely have her second certification this evening, per H. If it is upheld, [facility] will continue to pursue inpatient psychiatric stabilization. Referrals were sent by [facility] to hospitals for consideration. Safety plan is in place. CM will continue to follow. Social Determinants of Health Screening Will the Patient Participate in the Screening?: Declined to provide
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
--- NOTE | 2024-08-28 17:44 | ED.PROG_ITS ---
Date of service: 08/28/24 Time of Service: 17:44 Medical Decision Making 2nd cert upheld, no issues during shift. currently pending placement. Quality:SDOH Health Related Social Needs: Health related social needs housing instability, house d, with risk of homelessness (Z59.811), inadequate housing (Z59.1), problems related to housing/economic circumstances (Z59.89) Discharge Plan Discharge Details Chief Complaint: PsychEval Clinical Impression: Arabella, Psychosis Primary Care Provider: Unknown,Unknown ED Provider: Julio Castañeda Home Meds and New Rx's Prescriptions: No Action mirtazapine 30 mg tablet 30 mg PO QHS bupropion HCl [Wellbutrin XL] 150 mg tablet extended release 24 hr 150 mg PO QHS quetiapine 200 mg tablet 200 mg PO HS Patient Comments: TAKE 1 TABLET BY MOUTH AT BEDTIME
[2024-08-28] MEDS: Mirtazapine 15 MG TAB 30 MG PO (20:07)
[2024-08-28] MEDS: buPROPion-XL 150 MG TABCR PO (20:08)
[2024-08-28] MEDS: Famotidine 20 MG TAB PO (20:21)
[2024-08-28] MEDS: Docusate Sodium 100 MG CAP PO (20:21)
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
[2024-08-29] MEDS: Lidocaine 5% Patch 2 PATCH TP (01:39)
[2024-08-29] MEDS: Acetaminophen 500 MG TAB 1000 MG PO ×3 (01:39→19:10)
[2024-08-29] MEDS: hydrOXYzine HCL 25 MG TAB PO (05:06)
--- NOTE | 2024-08-29 06:49 | ED.PROG_ITS ---
Date of service: 08/29/24 Time of Service: 06:49 Medical Decision Making Patient was received in signout. Second certification has been completed. This evening the patient did not sleep well. She was complaining of her chronic neck pain. She was given Tylenol 1000 mg every 6 hours as needed, Voltaren gel sc heduled as well. She did request hydroxyzine to help sleep at around 5 AM. This was administered. Pending placement. Quality:[facility] Health Related Social Needs: Health related social needs housing instability, house d, with risk of homelessness (Z59.811), inadequate housing (Z59.1), problems related to housing/economic circumstances (Z59.89) Discharge Plan Discharge Details Chief Complaint: PsychEval Clinical Impression: Arabella, Psychosis Primary Care Provider: Unknown,Unknown ED Provider: Trip Artis Home Meds and New Rx's Prescriptions: No Action mirtazapine 30 mg tablet 30 mg PO QHS bupropion HCl [Wellbutrin XL] 150 mg tablet extended release 24 hr 150 mg PO QHS quetiapine 200 mg tablet 200 mg PO HS Patient Comments: TAKE 1 TABLET BY MOUTH AT BEDTIME
[2024-08-29 07:14] VITALS: BP 124/80; PULSE 101; RESP 16; O2SAT 99
[2024-08-29] MEDS: Lidocaine Patch Removal 2 EACH TP (10:09)
--- NOTE | 2024-08-29 12:09 | NUR.NOTE ---
Nursing Note: Pt's brother, Eduar, provided this ad copy writer with pt's mother's cell phone number: [phone]
--- NOTE | 2024-08-29 13:25 | CMSP_ITS ---
Date of service: 08/29/24 Time of Service: 13:25 Care Management Safety Plan Status Status: Involuntary Reason for Wait Reason for Wait: Inpatient Admission Safety Plan Safety Plan: INVOLUNTARY FOR INPATIENT PSYCHIATRIC STABILIZATION.? Patient is appropriate in all interactions since arriving at [facility]; Pt has demonstrated appropriate coping and communication skills, has articulated his or her needs and concerns and is fully engaged during staff interactions. Safety plan has been established with patient, and care team, to adhere to patient goals, identify restrictions based on behavioral status, address nutrition, and determine allowed personal belongings, tools for hygiene and personal care. Determine level of activity including ambulation, level of supervision, visitors, and determine privileges based on behaviors and level of engagement by pt. SAFETY PLAN: 1. Will remain on suicide precautions, in paper clothes 2. Will remain in Zone B under direct supervision of one-on-one staff at all times provided by [employer]; JOSIAH, ENTRY LEVEL MARKETING ASSISTANT electric knife operator. 3. May have paper cups, plates, finger foods as well as a cardboard spoon with which to eat meals. 4. Follow [facility] Management of the Admitted Behavioral Health Patient policy. 5. Shower available in Zone B without restriction. 6. Personal belongings-soft items permitted at RN discretion. 7. Visitors- No visitors at this time. 8. Activities: soft cart items approved per RN discretion. 9.? Bathroom available in Zone B without restriction. 10. Phone: limited to legal phone calls only via [facility] cordless phone at RN discretion. No personal calls to family/friends, or other facilities at this time. Due to INVOLUNTARY status, patient is being held at [facility] by the Department of Mental Health ([facility]) until 2nd certification by [facility] Psychiatrist can be performed (within 24 hours). Staff will provide de-escalation support (CPI) as needed. If patient wishes to leave [facility], staff will contact [facility] Crisis Screener ([phone]) and Weeder Thinner ([phone]) as soon as possible. In the event of elopement, notify [place] [employer] ([phone]). Patient is currently involuntarily at [facility]. [facility] Frontline Bakery Supervisor will continue seeking placement. Please contact the Weeder Thinner for any needed changes to Safety Plan. Safety plan has been provided to interdepartmental care team. Patient will be transported by [facility] at time of discharge.
--- NOTE | 2024-08-29 14:59 | ED.PROG_ITS ---
Date of service: 08/29/24 Time of Service: 14:59 Medical Decision Making Care was signed out by Dr. Artis at shift change, please see his documentation regarding prior ED course. Patient notably medically cleared at time of signout. Patient here involuntarily being held awaiting inpatient psychiatric treatment. Per nursing, patient continues to exhibit psychotic behaviors. Quality:[facility] Health Related Social Needs: Health related social needs housing instability, house d, with risk of homelessness (Z59.811), inadequate housing (Z59.1), problems related to housing/economic circumstances (Z59.89) Discharge Plan Discharge Details Chief Complaint: PsychEval Clinical Impression: Arabella, Psychosis Primary Care Provider: Diana,[facility] ED Provider: Parveen Patel [place] Meds and New Rx's Prescriptions: No Action mirtazapine 30 mg tablet 30 mg PO QHS bupropion HCl [Wellbutrin XL] 150 mg tablet extended release 24 hr 150 mg PO QHS quetiapine 200 mg tablet 200 mg PO HS Patient Comments: TAKE 1 TABLET BY MOUTH AT BEDTIME
[2024-08-29] MEDS: Diclofenac 1% Gel 100 GM TUBE TP (15:30)
--- NOTE | 2024-08-29 15:31 | PDOC.CMPRO ---
Date of service: 08/29/24 Time of Service: 15:31 Care Management Progress Note Progress Note Text Progress Note Text: CM met with staff to huddle regarding La Nena's plan of care. Per RN, La Nena has been disorganized and circular within interactions today. She has been asking to leave, although she has been informed multiple times that she is here under an involuntary hold for inpatient psychiatric treatment. She has asked to meet with family; per report, her mother declined to visit today, as it leads to agitation/frustration and is difficult for the family to deal with, as well as La Nena. Per [facility], Johanna is reviewing her referral, and plans to take her in transfer later today, after a 3:30 discharge. [facility] will coordinate transport. Safety plan in place while La Nena is at [facility]. CM will continue to follow. Social Determinants of Health Screening Will the Patient Participate in the Screening?: Declined to provide
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
--- NOTE | 2024-08-29 18:55 | NUR.NOTE ---
Evelyn from [facility] called to inform this typewriter assembler that the patient will transport tomorrow 08/30/24
[2024-08-29] MEDS: buPROPion-XL 150 MG TABCR PO (19:10)
[2024-08-29] MEDS: Mirtazapine 15 MG TAB 30 MG PO (19:10)
--- NOTE | 2024-08-30 01:40 | W.EDPROG ---
Date of service: 08/30/24 Time of Service: 01:40 Medical Decision Making Patient stable throughout the night. No interventions needed. Pending transfer in the morning/afternoon Quality:SDOH Health Related Social Needs: Health related social needs housing instability, housed, with risk of homelessness (Z59.811), inadequate housing (Z59.1), problems related to housing/economic circumstances (Z59.89) Discharge Plan Discharge Details Chief Complaint: PsychEval Clinical Impression: Arabella, Psychosis Primary Care Provider: Diana,[facility] ED Provider: Trip Artis Home Meds and New Rx's Prescriptions: No Action mirtazapine 30 mg tablet 30 mg PO QHS bupropion HCl [Wellbutrin XL] 150 mg tablet extended release 24 hr 150 mg PO QHS quetiapine 200 mg tablet 200 mg PO HS Patient Comments: TAKE 1 TABLET BY MOUTH AT BEDTIME
[2024-08-30] MEDS: Acetaminophen 500 MG TAB 1000 MG PO (09:21)
[2024-08-30] MEDS: Docusate Sodium 100 MG CAP PO (11:06)
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
--- NOTE | 2024-08-30 16:28 | W.EDPROG ---
Date of service: 08/30/24 Time of Service: 16:34 Medical Decision Making Care assumed from outgoing provider. Patient is a 39-year-old female currently under involuntary hold pending transport to [place] where she has been accepted for placement. Quality:[facility] Health Related Social Needs: Health related social needs housing instability, housed, with risk of homelessness (Z59.811), inadequate housing (Z59.1), problems related to housing/economic circumstances (Z59.89) Discharge Plan Discharge Details Chief Complaint: PsychEval Clinical Impression: Arabella, Psychosis Primary Care Provider: [facility] ED Provider: Julio Castañeda Home Meds and New Rx's Prescriptions: No Action mirtazapine 30 mg tablet 30 mg PO QHS bupropion HCl [Wellbutrin XL] 150 mg tablet extended release 24 hr 150 mg PO QHS quetiapine 200 mg tablet 200 mg PO HS Patient Comments: TAKE 1 TABLET BY MOUTH AT BEDTIME
== END 2024-08-30 17:02 ==
PROVIDERS: Emergency Provider Emergency Medicine
DX: F29 Unspecified psychosis not due to a substance or known physiological condition (principal); F30.9 Manic episode, unspecified; Z59.811 Housing instability, housed, with risk of homelessness; Z59.10 Inadequate housing, unspecified; Z59.89 Other problems related to housing and economic circumstances
CPT/HCPCS: 00123; 96372; 99285; J2359; J3490